=== PATIENT | male | born 1955 | race Caucasian/White ===

== ENCOUNTER 2020-07-28 14:09 | Emergency (ER) | payer OTHER ==
[~2020-07-28] VITALS: Ht 175.3 cm; Wt 74.8 kg
--- NOTE | 2020-07-28 14:44 | NUR ---
karena, from snf, right calcaneous fracture, sent by PMD. Patient a/ox1, breathing even and unlabored, no sob noted. Needs attended.
--- NOTE | 2020-07-28 15:00 | NUR ---
PATIENT OBSERVED TO BE GETTING OUT OF BED, REPOSITIONED. NO DISTRESS NOTED.
--- NOTE | 2020-07-28 15:20 | NUR ---
cloth grader at bedside for xray
--- NOTE | 2020-07-28 16:45 | NUR ---
PATIENT APPEARS TO BE RESTLESS AND ANXIOUS, HEART RATE 120, INFORMED DR. MOTA AND RECEIVED AN ORDER TO GIVE ATIVAN 1MG IM X1. ORDER NOTED AND CARRIED OUT.
--- NOTE | 2020-07-28 16:49 | NUR ---
CALLED [id number] [phone] X 2 TRIP NUMBER [id number] WILL CALL US WITH ETA.
[2020-07-28] MEDS ORDERED: LORAZEPAM INJ 2 MG/ML VIAL ONE (16:54)
[2020-07-28] MEDS ORDERED: LORAZEPAM INJ 2 MG/ML VIAL IM ONE (17:00)
--- NOTE | 2020-07-28 18:15 | NUR ---
CALL [facility] ETA [phone]
[2020-07-28 19:14] VITALS: BP 122/82
--- NOTE | 2020-07-28 19:14 | NUR ---
REPORT GIVEN TO [facility], ALL PAPERWORKS PROVIDED. SPLINT ON RLE INTACT. Patient discharged to SNF in stable condition. Written and verbal after care instructions given. Patient verbalizes understanding of instruction.
== END 2020-07-28 19:15 ==
LOC: ER 14:14
DX: S92.001A Unspecified fracture of right calcaneus, initial encounter for closed fracture (principal); I10 Essential (primary) hypertension; E78.5 Hyperlipidemia, unspecified; I25.2 Old myocardial infarction; K21.9 Gastro-esophageal reflux disease without esophagitis; F39 Unspecified mood [affective] disorder; X58.XXXA Exposure to other specified factors, initial encounter; Y93.89 Activity, other specified; Y92.89 Other specified places as the place of occurrence of the external cause; Y99.8 Other external cause status
CPT/HCPCS: 29515; 73630; 96372; 99283; J2060